=== PATIENT | female | born 1985 | race Caucasian/White ===

== ENCOUNTER 2022-09-29 23:57 | Emergency (ER) | payer MEDICAID ==
[~2022-09-29] VITALS: Ht 170.2 cm; Wt 100.0 kg
[2022-09-30 00:16] VITALS: BP 136/73
== END 2022-09-30 03:09 | disposition left against medical advice (07) ==
LOC: ER 23:58
DX: M79.674 Pain in right toe(s) (principal); Z53.21 Procedure and treatment not carried out due to patient leaving prior to being seen by health care provider

== ENCOUNTER 2022-10-26 05:07 | Emergency (ER) | payer MEDICAID ==
[~2022-10-26] VITALS: Ht 167.6 cm; Wt 94.8 kg
[2022-10-26 05:10] VITALS: BP 131/60
[2022-10-26 05:37] LABS: CLARITY,URINE CLEAR (Clear); COLOR,URINE YELLOW (Yellow); GLUCOSE, URINE NEGATIVE (Neg); KETONES,URINE NEGATIVE (Neg); LEUKOCYTE ESTERASE ,URINE MODERATE (Neg); NITRITES, URINE POSITIVE (Neg); OCCULT BLOOD,URINE LARGE (Neg); PH,URINE 7.5 (4.8-8.0); PROTEIN,URINE 100 mg/dl (Neg)
[2022-10-26 05:41] LABS: URINE HCG NEGATIVE (NEG)
[2022-10-26 05:48] LABS: UA COLLECTION TYPE CLN CATCH MIDSTREAM
[2022-10-26 05:50] LABS: BACTERIA,URINE 4+ /HPF (Neg); RBC,URINE TNTC /HPF (0-2); WBC,URINE 50-100 /HPF (0-4)
[2022-10-26 05:51] LABS: MUCUS STRANDS NONE SEEN /LPF (Neg); SQUAMOUS EPITHELIAL CELL,UR FEW /LPF (FEW); WBC CLUMPS,URINE FEW /HPF (NEGATIVE)
[2022-10-26] MEDS ORDERED: sulfamethoxazole/trimethoprim DS (800/160mg) tablet PO ONE (06:05)
[2022-10-26] MEDS ORDERED: naproxen 500mg tablet PO ONE (06:10)
[2022-10-26] MEDS ORDERED: NAPR-56 PO (06:28)
[2022-10-26] MEDS ORDERED: SULF1TAB49 PO (06:28)
== END 2022-10-26 06:44 | disposition home or self-care (01) ==
LOC: ER 05:08
DX: N39.0 Urinary tract infection, site not specified (principal); Z79.899 Other long term (current) drug therapy
CPT/HCPCS: 81001; 81025; 87077; 87088; 87186; 99283

== ENCOUNTER 2022-12-03 18:30 | Emergency (ER) | payer MEDICAID ==
[~2022-12-03] VITALS: Ht 170.2 cm; Wt 86.0 kg
[2022-12-03 20:18] LABS: URINE HCG NEGATIVE (NEG)
[2022-12-03 20:21] LABS: CLARITY,URINE CLOUDY (Clear); COLOR,URINE YELLOW (Yellow); GLUCOSE, URINE NEGATIVE (Neg); KETONES,URINE NEGATIVE (Neg); LEUKOCYTE ESTERASE ,URINE MODERATE (Neg); NITRITES, URINE NEGATIVE (Neg); OCCULT BLOOD,URINE NEGATIVE (Neg); PROTEIN,URINE NEGATIVE (Neg)
[2022-12-03 20:24] LABS: UA COLLECTION TYPE CLN CATCH MIDSTREAM
[2022-12-03 20:30] LABS: WBC,URINE 50-100 /HPF (0-4)
[2022-12-03 20:31] LABS: BACTERIA,URINE 1+ /HPF (Neg); CAL OXALATE CRYSTALS 4+ /HPF (NEGATIVE); SQUAMOUS EPITHELIAL CELL,UR FEW /LPF (FEW)
[2022-12-03] MEDS ORDERED: HYDROcodone/acetaminophen 5mg/325mg tablet PO ONE (20:50)
[2022-12-03] MEDS ORDERED: LORazepam 1 MG tablet PO ONE (20:50)
[2022-12-03] MEDS ORDERED: cephalexin 250mg capsule PO ONE (20:50)
[2022-12-03] MEDS ORDERED: CEPH250T PO (20:50)
[2022-12-03] MEDS ORDERED: ondansetron 4mg rapidly disintigrating tab PO ONE (20:50)
[2022-12-03 21:08] VITALS: BP 133/71
== END 2022-12-03 23:00 | disposition home or self-care (01) ==
LOC: ER 18:31
DX: L03.011 Cellulitis of right finger (principal); N39.0 Urinary tract infection, site not specified; Z79.899 Other long term (current) drug therapy
CPT/HCPCS: 81001; 81025; 87077; 87088; 87186; 99284

== ENCOUNTER 2022-12-06 18:32 | Emergency (ER) | payer MEDICAID ==
[~2022-12-06 18:32] MED LIST: CEPH250T PO
== END 2022-12-06 19:22 | disposition left against medical advice (07) ==
LOC: ER 18:32
DX: M79.646 Pain in unspecified finger(s) (principal); Z53.21 Procedure and treatment not carried out due to patient leaving prior to being seen by health care provider

== ENCOUNTER 2023-01-27 15:59 | Emergency (ER) | payer MEDICAID ==
[~2023-01-27] VITALS: Ht 172.7 cm; Wt 86.4 kg
[2023-01-27] MEDS ORDERED: proCHLORperazine 10 MG/2 ml inj IV ONE (16:50)
[2023-01-27] MEDS: diphenhydrAMINE 50 mg/ml inj IV ONE ×2 (16:50→18:45)
[2023-01-27] MEDS ORDERED: ondansetron/PF 4mg/2ml inj IV ONE (16:50)
[2023-01-27] MEDS ORDERED: normal saline 1000ml 1,000 ML IV ONE (16:50)
[2023-01-27 17:00] VITALS: BP 129/88
[2023-01-27 17:58] LABS: BASOPHILS % (AUTO) 0.3 % (0-1); EOSINOPHILS # (AUTO) 0.2 X10'3 (0-0.9); EOSINOPHILS % (AUTO) 1.8 % (0-6); HEMATOCRIT 40.2 % (35.0-45.0); HEMOGLOBIN 12.9 g/dl (12.0-16.0); LYMPHOCYTES # (AUTO) 0.8 X10'3 (1.1-4.8); LYMPHOCYTES % (AUTO) 8.5 % (21-51); MEAN CORPUSCULAR HEMOGLOBIN 24.5 PG (27.0-31.0); MEAN CORPUSCULAR HGB CONC 32.1 g/dL (33.0-36.5); MEAN CORPUSCULAR VOLUME 76.4 FL (78-98); MEAN PLATELET VOLUME 7.3 FL (7.4-10.4); MONOCYTES # (AUTO) 0.7 X10'3 (0-0.9); MONOCYTES % (AUTO) 7.3 % (2-12); NEUTROPHILS # (AUTO) 8.1 X10'3 (1.8-7.7); NEUTROPHILS % (AUTO) 82.1 % (42-75); PLATELET COUNT 327 X10'3 (140-440); RED BLOOD COUNT 5.27 X10'6 (4.20-5.60); RED CELL DISTRIBUTION WIDTH 20.5 % (11.5-14.5); WHITE BLOOD COUNT 9.8 X10'3 (4.5-11.0)
[2023-01-27 17:58] LABS: ALANINE AMINOTRANSFERASE 242 U/L (12-78); ALBUMIN 3.8 G/DL (3.4-5.0); ALBUMIN/GLOBULIN RATIO 0.8 (1.1-1.5); ALKALINE PHOSPHATASE 100 IU/L (46-116); ANION GAP 11 (8-16); ASPARTATE AMINO TRANSFERASE 116 U/L (10-37); BILIRUBIN,TOTAL 0.9 MG/DL (0.1-1.0); BLOOD UREA NITROGEN 8 MG/DL (7-18); BUN/CREATININE RATIO 12.1 (10.0-20.0); CALCIUM 9.3 MG/DL (8.5-10.1); CHLORIDE 102 MMOL/L (99-107); CREATININE 0.66 MG/DL (0.40-0.90); GLUCOSE 84 MG/DL (70-104); SODIUM 137 MMOL/L (135-145); TOTAL CARBON DIOXIDE 24.3 MMOL/L (24-32); TOTAL PROTEIN 8.8 G/DL (6.4-8.2); eGFR > 90 ML/MIN
[2023-01-27 18:02] LABS: POTASSIUM 3.9 MMOL/L (3.5-5.1)
[2023-01-27] MEDS ORDERED: ONDA4TAB12 PO (18:24)
== END 2023-01-27 19:05 | disposition home or self-care (01) ==
LOC: ER 16:00
DX: A08.4 Viral intestinal infection, unspecified (principal); Z79.899 Other long term (current) drug therapy
CPT/HCPCS: 80053; 85025; 96374; 96375; 99284; J0780; J2405; J7030; J1200

== ENCOUNTER 2023-09-21 06:20 | Emergency (ER) | payer MEDICAID ==
[~2023-09-21] VITALS: Ht 170.2 cm; Wt 84.7 kg
[~2023-09-21 06:20] MED LIST changes: -CEPH250T PO; +ONDA4TAB12 PO
[2023-09-21 06:25] VITALS: BP 129/80; PULSE 107; RESP 18; TEMP 98.6; O2SAT 99
[2023-09-21] MEDS ORDERED: SULF1TAB45 PO (07:00)
[2023-09-21] MEDS ORDERED: CEPH-585 PO (07:00)
[2023-09-21] MEDS: sulfamethoxazole/trimethoprim DS (800/160mg) tablet PO ONE (07:08)
[2023-09-21] MEDS: LIDOCAINE 1%/EPI 1:100,000 inj. 10 ML multi-dose vial IJ ONE (07:08)
[2023-09-21] MEDS: cephalexin 250mg capsule PO ONE (07:08)
== END 2023-09-21 08:06 | disposition home or self-care (01) ==
LOC: ER 06:21
DX: L03.012 Cellulitis of left finger (principal); F15.90 Other stimulant use, unspecified, uncomplicated; Z59.00 Homelessness unspecified; Z79.899 Other long term (current) drug therapy; Z79.2 Long term (current) use of antibiotics
CPT/HCPCS: 10060; 99283; J3490